=== PATIENT | male | born 1970 | race Caucasian/White ===

== ENCOUNTER 2017-07-13 17:09 | Emergency (ER) | payer MEDICAID, OTHER ==
[2017-07-13] MEDS: morphine 4 MG/ML VIAL IV (19:29)
[2017-07-13] MEDS: ONDANSETRON 4 MG INJ IV (19:29)
[2017-07-13] MEDS: SOD CHLORIDE 0.9% 1,000 ML IV (19:30)
[2017-07-13 19:33] LABS: ADD MAN DIFF? NO
[2017-07-13 19:36] LABS: WHITE BLOOD COUNT 8.8 10^3/ul (4.8-10.8)
[2017-07-13 19:36] LABS: BASOPHIL # 0.1 10^3/ul (0.0-0.1); BASOPHILS % 0.8 % (0.0-2.0); EOSINOPHILS # 0.1 10^3/ul (0.0-0.5); EOSINOPHILS % 1.1 % (0.0-7.0); HEMATOCRIT 40.4 % (42.0-52.0); HEMOGLOBIN 14.5 g/dl (14.0-18.0); LYMPHOCYTES # 2.4 10^3/ul (0.8-2.9); LYMPHOCYTES % 26.8 % (15.0-51.0); MEAN CORPUSCULAR HGB CONC 35.9 g/dl (32.0-37.0); MEAN PLATELET VOLUME 10.6 fl (7.4-10.4); MONOCYTE # 0.9 10^3/ul (0.3-0.9); MONOCYTES % 9.7 % (0.0-11.0); NEUTROPHIL # 5.4 10^3/ul (1.6-7.5); NEUTROPHILS % 61.1 % (39.0-77.0); PLATELET COUNT 180 10^3/UL (140-415); RED BLOOD COUNT 4.39 10^6/ul (4.70-6.10); RED CELL DISTRIBUTION WIDTH 11.8 % (11.5-14.5)
[2017-07-13 19:53] LABS: ALANINE AMINOTRANSFERASE 69 IU/L (13-69); ALBUMIN 4.3 g/dl (3.3-4.9); ALKALINE PHOSPHATASE 113 IU/L (42-121); ANION GAP 18 (8-16); ASPARTATE AMINO TRANSFERASE 62 IU/L (15-46); BILIRUBIN,INDIRECT 0.2 mg/dl (0-1.1); BILIRUBIN,TOTAL 0.2 mg/dl (0.2-1.3); BLOOD UREA NITROGEN 11 mg/dl (7-20); CALCIUM 9.5 mg/dl (8.4-10.2); CARBON DIOXIDE 21 mmol/L (21-31); CHLORIDE 97 mmol/L (97-110); CREATININE 0.58 mg/dl (0.61-1.24); LIPASE 416 U/L (23-300); POTASSIUM 4.2 mmol/L (3.5-5.1); SODIUM 132 mmol/L (135-144); TOTAL PROTEIN 8.6 g/dl (6.1-8.1)
[2017-07-13 19:56] LABS: GLUCOSE 503 mg/dl (70-220)
[2017-07-13 20:08] LABS: TROPONIN-I < 0.012 ng/ml (0.00-0.12)
[2017-07-13] MEDS: INSULIN LISPRO 100 UNIT/ML VIAL SC (20:38)
[2017-07-13] MEDS: LORAZEPAM 2 MG INJ IV (20:47)
[2017-07-13] MEDS ORDERED: DIAZEPAM 5 MG/ML SYG IV (21:00)
[2017-07-13 22:12] LABS: ADD UMIC NO; UR ASCORBIC ACID NEGATIVE (NEGATIVE); UR BILIRUBIN (Dip) NEGATIVE (NEGATIVE); UR BLOOD (Dip) NEGATIVE (NEGATIVE); UR CLARITY CLEAR (CLEAR); UR COLOR STRAW (YELLOW); UR GLUCOSE (Dip) 3+ mg/dL (NEGATIVE); UR KETONES (Dip) 1+ mg/dL (NEGATIVE); UR LEUKOCYTE ESTERASE (Dip) NEGATIVE Leu/ul (NEGATIVE); UR NITRITE (Dip) NEGATIVE (NEGATIVE); UR TOTAL PROTEIN (Dip) NEGATIVE (NEGATIVE); UR UROBILINOGEN (Dip) NEGATIVE (NEGATIVE)
== END 2017-07-13 22:03 | disposition home or self-care (01) ==
LOC: E/R 17:09
DX: F10.230 Alcohol dependence with withdrawal, uncomplicated (principal); E11.9 Type 2 diabetes mellitus without complications; F17.210 Nicotine dependence, cigarettes, uncomplicated; Z79.84 Long term (current) use of oral hypoglycemic drugs
CPT/HCPCS: 71045; 76705; 80053; 81003; 82962; 83690; 84484; 85025; 93005; 96372; 96374; 96375; 99285-25